=== PATIENT | female | born 1940 | race Caucasian/White ===

== ENCOUNTER → 2017-03-17 | Outpatient (CLI) | payer MEDICARE, OTHER ==
[~2017-03-17] MED LIST: AMLO10TA57 PO; ATOR40TA29 PO; CITA-49 PO; CLON1PAT15 TP; ESTR0.6261 PO; FERR160T22 PO; FEXO180T56 PO; HYDR-696 PO; LABE200T27 PO; PANT40TA32 PO; PIOG45TA5 PO; TRIA50CA PO; VALS320T7 PO
--- NOTE | 2017-03-18 08:58 | DI ---
Indication: ITS.REASON: M25.562, M25.462 PROCEDURE: MRI KNEE LEFT W/O CONTRAST: Encounter: Initial Comparison: None Technique: Multiplanar multisequence MR imaging of the left knee was performed without contrast. Findings: Lateral meniscus is intact. Complex tear of the posterior horn and body of the medial meniscus extending into the posterior root with some mild extrusion. The ACL and PCL are intact. The MCL and lateral collateral ligament complex are intact. The extensor mechanism is normal. No acute fracture. The cartilage of the lateral compartment is normal. Medial compartment cartilage shows some partial-thickness loss with small areas of subchondral edema. Patellofemoral compartment cartilage has an area of cartilaginous contusion in the lateral facet and a small fissure in the median ridge. No joint effusion. Small Bakers cyst. Muscular signal intensity is normal. Impression: Medial meniscal tear. .
== END ==
LOC: IMA 18:45
PROVIDERS: ATTEND Internal Medicine
DX: S83.232A Complex tear of medial meniscus, current injury, left knee, initial encounter (principal); M71.22 Synovial cyst of popliteal space [Baker], left knee; M25.562 Pain in left knee